=== PATIENT | female | born 1950 | race Caucasian/White ===

== ENCOUNTER 2017-02-18 02:45 | Emergency (ER) | payer MEDICARE, OTHER ==
[~2017-02-18] VITALS: Ht 157.5 cm; Wt 102.4 kg
[~2017-02-18 02:45] MED LIST: ACET500C5 PO; CHOLESTEROL MED; KLONOPIN; NEURONTIN; PROZAC; SYNTHROID; TEGRETOL; [UNRECOGNIZED DRUG - OTHER]; [UNRECOGNIZED DRUG - REMARK]
[2017-02-18 02:48] VITALS: Ht 157.5 cm; Wt 102.4 kg
[2017-02-18 03:07] VITALS: TEMP 98
[2017-02-18] MEDS ORDERED: IBUPROFEN 800 MG TAB PO ONE (03:30)
--- NOTE | 2017-02-18 03:43 | RADRPT ---
PROCEDURE: CT Brain without contrast. CLINICAL INDICATION: Trauma, hematoma, history of multiple sclerosis TECHNIQUE: A CT of the brain was performed utilizing axial imaging from the skull base through the vertex without intravenous contrast. Multiplanar reformatted images were made.The CTDIvol is 45.01 mGy and the DLP is 720.23 mGycm. One or more the following dose reduction techniques were utilized: Automated exposure control, adjus tment of the mA and / or kV according to patient's size, or use of iterative reconstruction techniqu e. DICOM images are available. COMPARISON: OT CT BRAIN 05/16/2007 FINDINGS: There is no intracranial hemorrhage, mass effect, or midline shift. No extra-axial fluid collection is seen. Mild atrophy is identified with compensatory ventricular and sulcal enlargement. Small a reas of decreased density again seen in cerebral white matter which could be secondary to multiple s clerosis not significantly changed compared to previous study. Suggestive of prominent perivascular spaces in bilateral sub lenticular regions again seen. The lees white matter differentiation is well preserved with no acute infarct detected. The osseous structures and visualized paranasal sinuses are unremarkable. Arterial calcification. IMPRESSION: 1. No evidence of acute intracranial pathology. Right frontal extracranial soft tissue hematoma. 2. Mild diffuse atrophy again seen. 3. Small areas of decreased density again seen in cerebral white matter which could be secondary to multiple sclerosis not significantly changed compared to previous study. Suggestive of prominent pe rivascular spaces in bilateral sub lenticular regions again seen. RPTAT: HJES .Aiden Melissa MD, Date Time Electronically viewed and signed by .Aiden Melissa MD, MD on 02/18/2017 03:42 .S/
[2017-02-18] MEDS ORDERED: TRAM50TA2 PO (04:08)
--- NOTE | 2017-02-18 04:11 | ERD ---
ER Documentation Chief Complaint Chief Complaint "code green", hit head on bathroom wall in 5 east, swollen forehead. no ko HPI This is 66-year-old female with a history of MS who was visiting a friend in the hospital here. The patient says she was sitting down after she voided. She said she was getting up to pull her pants up when she stumbled forward hitting her right forehead on the corner of the sink. There is no laceration no loss of consciousness. Denies any neck pain numbness weakness blurry vision focal neurological complaints. Has a dull frontal headache on the right side with the hematoma. No other complaints ROS All systems reviewed and are negative except as per history of present illness. Medications Home Meds Active Scripts Tramadol HCl (Tramadol HCl) 50 Mg Tablet, 50 MG PO Q6, #20 TAB Prov:AVEL GRACE DO 02/18/17 Acetaminophen* (Tylophen*) 500 Mg Capsule, 1 CAP PO Q6H Y for PAIN AND OR ELEVATED TEMP, #15 CAP Prov:KIRK TRAN MD 08/05/16 Reported Medications [Other Meds Unknown] No Conflict Check 05/06/10 [Cholesterol Med] No Conflict Check 05/06/10 Synthroid 05/06/10 Thyro 05/06/10 Tegretol 05/06/10 [Klonopin] No Conflict Check 05/06/10 [Prozac] No Conflict Check 05/06/10 [Neurontin] No Conflict Check 05/06/10 Allergies Allergies: Coded Allergies: No Known Allergies (Verified Allergy, Mild, 04/14/13) PMhx/Soc Medical and Surgical Hx: pt denies Surgical Hx History of Surgery: No Anesthesia Reaction: No Hx Neurological Disorder: Yes (Multi Sclerosis) Hx Respiratory Disorders: No Hx Cardiac Disorders: No Hx Psychiatric Problems: Yes (Depression;Claustrophobia) Hx Miscellaneous Medical Probl: Yes (Fall) Hx Alcohol Use: No Hx Substance Use: No Hx Tobacco Use: No Smoking Status: Never smoker FmHx Family History: No coronary disease Physical Exam Vitals Vital Signs Date Time Temp Pulse Resp B/P Pulse Ox O2 Delivery O2 Flow Rate FiO2 02/18/17 03:07 98.0 66 17 143/70 94 Room Air 02/18/17 02:48 97.0 80 20 170/79 98 Physical Exam Const: Well-developed, well-nourished Head: Right frontal hematoma on the forehead, normocephalic] Eyes: Normal Conjunctiva, PERRLA, EOMI, normal sclera, no nystagmus ENT: Normal External Ears, Nose and Mouth, moist mucus membranes. Neck: Full range of motion. No meningismus, no lymphadenopathy. Resp: Clear to auscultation bilaterally, no wheezing, rhonchi, rales Cardio: Regular rate and rhythm, no murmurs, S1 S2 present Abd: Soft, non tender x 4, non distended. Normal bowel sounds, no guarding or rebound, no pulsitile abdominal masses or bruits Skin: No petechiae or rashes, no ecchymosis , no maculopapular rash Back: No midline or flank tenderness Ext: No cyanosis, or edema, FROM x 4, normal inspection, neurovascularly intact x 4 Neur: Awake and alert, STR 5/5 x 4, sensation intact x 4, no focal findings, cerebellum intact Psych: Normal Mood and Affect Results 24 hrs Current Medications Medications (Trade) Dose Ordered Sig/Neal Route PRN Reason Start Time Stop Time Status Last Admin Dose Admin Ibuprofen (Motrin) 800 mg ONCE ONCE PO 02/18/17 03:30 02/18/17 03:31 DC Procedures/MDM PROCEDURE: CT Brain without contrast. CLINICAL INDICATION: Trauma, hematoma, history of multiple sclerosis TECHNIQUE: A CT of the brain was performed utilizing axial imaging from the skull base through the vertex without intravenous contrast. Multiplanar reformatted images were made.The CTDIvol is 45.01 mGy and the DLP is 720.23 mGycm. One or more the following dose reduction techniques were utilized: Automated exposure control, adjustment of the mA and / or kV according to patient's size, or use of iterative reconstruction technique. DICOM images are available. COMPARISON: OT CT BRAIN 05/16/2007 FINDINGS: There is no intracranial hemorrhage, mass effect, or midline shift. No extra- axial fluid collection is seen. Mild atrophy is identified with compensatory ventricular and sulcal enlargement. Small areas of decreased density again seen in cerebral white matter which could be secondary to multiple sclerosis not significantly changed compared to previous study. Suggestive of prominent perivascular spaces in bilateral sub lenticular regions again seen. The lees white matter differentiation is well preserved with no acute infarct detected. The osseous structures and visualized paranasal sinuses are unremarkable. Arterial calcification. IMPRESSION: 1. No evidence of acute intracranial pathology. Right frontal extracranial soft tissue hematoma. 2. Mild diffuse atrophy again seen. 3. Small areas of decreased density again seen in cerebral white matter which could be secondary to multiple sclerosis not significantly changed compared to previous study. Suggestive of prominent perivascular spaces in bilateral sub lenticular regions again seen. RPTAT: HJES .Aiden Melissa MD, MD Date Time Electronically viewed and signed by .Aiden Melissa MD, MD on 02/18/2017 03:42 .S/ CC: AVEL GRACE DO No acute pathology on CAT scan will discharge home with precautions Departure Diagnosis: Primary Impression: Acute head injury Encounter type: initial encounter Qualified Code: S09.90XA - Acute head injury, initial encounter Condition: Stable Patient Instructions: HEAD INJURY with Wake-Up (Adult) Referrals: TRAM IBRAHIM MD (PCP) AVEL GRACE DO Feb 18, 2017 04:11
[2017-02-18 04:13] VITALS: BP 145/83; PULSE 73; RESP 72
== END 2017-02-18 04:33 | disposition home or self-care (01) ==
LOC: E/R 02:45
DX: S00.83XA Contusion of other part of head, initial encounter (principal); R40.2142 Coma scale, eyes open, spontaneous, at arrival to emergency department; R40.2252 Coma scale, best verbal response, oriented, at arrival to emergency department; R40.2362 Coma scale, best motor response, obeys commands, at arrival to emergency department; W22.8XXA Striking against or struck by other objects, initial encounter; Y92.9 Unspecified place or not applicable
CPT/HCPCS: 70450

== ENCOUNTER 2017-04-12 01:39 | Emergency (ER) | END 2017-04-12 02:27 | disposition left against medical advice (07) ==

== ENCOUNTER 2017-04-15 07:58 | Emergency (ER) | END 2017-04-15 09:33 | disposition home or self-care (01) ==

== ENCOUNTER → 2018-08-16 | Outpatient (CLI) | payer MEDICARE, OTHER ==
[~2018-08-16] MED LIST changes: +DOXY100T20 PO; +MED4DP PO; +TRAM50TA2 PO
== END | disposition home or self-care (01) ==
LOC: LAB 12:44
PROVIDERS: ATTEND Internal Medicine Nephrology
DX: E78.5 Hyperlipidemia, unspecified (principal); E11.9 Type 2 diabetes mellitus without complications
CPT/HCPCS: 84436; 84443; 84480